=== PATIENT | female | born 1940 | race Caucasian/White ===

== ENCOUNTER 2017-05-06 08:33 | Outpatient (CLI) | payer MEDICARE, BC ==
--- NOTE | 2017-05-06 09:32 | ULT ---
COMPLETE ABDOMEN ULTRASOUND: INDICATION: Right upper quadrant abdominal pain. FINDINGS: There is diffuse fatty infiltration of the liver. Visualized aspects of the abdominal aorta, IVC, and pancreas appear within normal limits. Small stones are seen within the gallbladder. No sonographic Obando's sign is reported. Common bile duct measures 4.22 mm. The right kidney measures 10 x 5.1 x 4.3 cm. The left measures 10.1 x 5.3 x 5.9 cm. The spleen measured 9.6 cm. IMPRESSION: 1. Fatty liver. 2. Cholelithiasis. POS: [facility]
== END 2017-05-06 08:34 | disposition home or self-care (01) ==
LOC: ULT 08:33
PROVIDERS: ATTEND Family Medicine
DX: R10.11 Right upper quadrant pain (principal); K76.0 Fatty (change of) liver, not elsewhere classified; K80.20 Calculus of gallbladder without cholecystitis without obstruction
CPT/HCPCS: 76700

== ENCOUNTER 2018-03-22 08:46 | Outpatient (CLI) | payer MEDICARE, BC | END 2018-03-22 08:47 | disposition home or self-care (01) | LOC: BICMAMMO 08:46 | PROVIDERS: ATTEND Family Medicine | DX: Z12.31 Encounter for screening mammogram for malignant neoplasm of breast (principal); R92.1 Mammographic calcification found on diagnostic imaging of breast; Z80.3 Family history of malignant neoplasm of breast | CPT/HCPCS: 77063; 77067 ==

== ENCOUNTER 2019-03-23 08:33 | Outpatient (CLI) | payer MEDICARE, BC ==
--- NOTE | 2019-03-23 09:15 | MMO ---
Bilateral MAMMO Bilat Screen [facility]. CLINICAL HISTORY: Patient is 78 years old and is seen for screening. The patient has the following family history of breast cancer: maternal aunt, malignant (generic). The patient has no personal history of cancer. The patient has a history of left Cyst Aspiration in 2008 - benign, bilateral Excisional Biopsy in [id number] - benign and right Cyst Aspiration in 2002. VIEWS: The views performed were: bilateral craniocaudal with tomosynthesis and bilateral mediolateral oblique with tomosynthesis. FILMS COMPARED: The present examination has been compared to prior imaging studies performed at [facility] on 03/08/2015, 03/10/2016, 03/11/2017 and 03/22/2018. This study has been interpreted with the assistance of computer-aided detection. MAMMOGRAM FINDINGS: There are scattered fibroglandular densities. There are stable benign appearing calcifications seen in both breasts. There are also vascular calcifications. There are no suspicious masses, suspicious calcifications, or new areas of architectural distortion. IMPRESSION: THERE IS NO MAMMOGRAPHIC EVIDENCE OF MALIGNANCY. A ROUTINE FOLLOW-UP MAMMOGRAM IN 1 YEAR IS RECOMMENDED. THE RESULTS OF THIS EXAM WERE SENT TO THE PATIENT. ACR BI-RADS Category 2 - Benign finding MAMMOGRAPHY NOTE: 1. A negative mammogram report should not delay a biopsy if a dominant of clinically suspicious mass is present. 2. Approximately 10% to 15% of breast cancers are not detected by mammography. 3. Adenosis and dense breasts may obscure an underlying neoplasm. Reported by: GERARDO MARTINO MD Electonically Signed: [id number]
== END 2019-03-23 08:34 | disposition home or self-care (01) ==
LOC: BICMAMMO 08:33
PROVIDERS: ATTEND Family Medicine
DX: Z12.31 Encounter for screening mammogram for malignant neoplasm of breast (principal); Z80.3 Family history of malignant neoplasm of breast; Z91.89 Other specified personal risk factors, not elsewhere classified
CPT/HCPCS: 77063; 77067

== ENCOUNTER 2020-03-28 08:53 | Outpatient (CLI) | payer MEDICARE, BC ==
--- NOTE | 2020-03-28 10:38 | MMO ---
Bilateral MAMMO Bilat Screen [facility]. CLINICAL HISTORY: Patient is 79 years old and is seen for screening. The patient has the following family history of breast cancer: maternal aunt, malignant (generic). The patient has no personal history of cancer. The patient has a history of left Cyst Aspiration in 2008 - benign, bilateral Excisional Biopsy in [id number] - benign and right Cyst Aspiration in 2002. VIEWS: The views performed were: bilateral craniocaudal with tomosynthesis and bilateral mediolateral oblique with tomosynthesis. FILMS COMPARED: The present examination has been compared to prior imaging studies performed at [facility] on 03/10/2016, 03/11/2017, 03/22/2018 and 03/23/2019. This study has been interpreted with the assistance of computer-aided detection. MAMMOGRAM FINDINGS: There are scattered fibroglandular densities. Benign calcifications are noted bilaterally. There are no suspicious masses, suspicious calcifications, or new areas of architectural distortion. IMPRESSION: THERE IS NO MAMMOGRAPHIC EVIDENCE OF MALIGNANCY. A ROUTINE FOLLOW-UP MAMMOGRAM IN 1 YEAR IS RECOMMENDED. THE RESULTS OF THIS EXAM WERE SENT TO THE PATIENT. ACR BI-RADS Category 2 - Benign finding MAMMOGRAPHY NOTE: 1. A negative mammogram report should not delay a biopsy if a dominant of clinically suspicious mass is present. 2. Approximately 10% to 15% of breast cancers are not detected by mammography. 3. Adenosis and dense breasts may obscure an underlying neoplasm. Reported by: KD SIDHU MD Electonically Signed: [id number]
== END 2020-03-28 08:54 | disposition home or self-care (01) ==
LOC: BICMAMMO 08:53
PROVIDERS: ATTEND Family Medicine
DX: Z12.31 Encounter for screening mammogram for malignant neoplasm of breast (principal); Z80.3 Family history of malignant neoplasm of breast; Z91.89 Other specified personal risk factors, not elsewhere classified
CPT/HCPCS: 77063; 77067

== ENCOUNTER 2020-05-14 12:34 | Outpatient (CLI) | payer MEDICARE, BC ==
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
--- NOTE | 2020-05-14 16:27 | RAD ---
XR Ribs Lt>=2 View W/PA CXR History: Pain Comparison: Chest radiograph March 26, 2020 Findings: No acute displaced rib fracture. Mild atelectatic changes lung bases. Advanced degenerative disease lumbar spine. Moderate costochondral calcifications. Impression: Mild bibasilar atelectasis. No rib abnormality.
== END 2020-05-14 12:35 | disposition home or self-care (01) ==
LOC: SCSRAD 12:34
PROVIDERS: ATTEND Family Medicine
DX: R07.89 Other chest pain (principal); R10.30 Lower abdominal pain, unspecified; J98.11 Atelectasis
CPT/HCPCS: 74018

== ENCOUNTER 2021-04-04 07:54 | Outpatient (CLI) | payer MEDICARE, BC | END 2021-04-04 07:55 | disposition home or self-care (01) | LOC: BICMAMMO 07:54 | PROVIDERS: ATTEND Family Medicine | DX: Z12.31 Encounter for screening mammogram for malignant neoplasm of breast (principal); Z91.89 Other specified personal risk factors, not elsewhere classified; Z98.890 Other specified postprocedural states; Z80.3 Family history of malignant neoplasm of breast | CPT/HCPCS: 77063; 77067 ==